=== PATIENT | male | born 1965 ===

== ENCOUNTER 2017-01-28 01:03 | Emergency (ER) | payer SELFPAY ==
[2017-01-28 01:16] VITALS: RESP 17; O2SAT 98
[2017-01-28] MEDS ORDERED: TDAP Vaccine 0.5 mL Syr IM ONE (02:12)
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
[2017-01-28 02:29] VITALS: BP 140/81; PULSE 83; TEMP 98.3
== END 2017-01-28 02:27 | disposition home or self-care (01) ==
LOC: H.ER 01:03
DX: S80.211A Abrasion, right knee, initial encounter (principal); S80.212A Abrasion, left knee, initial encounter; Y04.0XXA Assault by unarmed brawl or fight, initial encounter; Y92.89 Other specified places as the place of occurrence of the external cause; F39 Unspecified mood [affective] disorder